=== PATIENT | female | born 1995 | race Caucasian/White ===

== ENCOUNTER 2022-09-01 20:04 | Emergency (ER) | payer MEDICAID, SELFPAY ==
[2022-09-01 20:26] VITALS: BP 116/87; PULSE 110; RESP 20; TEMP 37.2; O2SAT 100; BMI 39.8
[2022-09-01 23:17] VITALS: BP 123/78; PULSE 73; RESP 16; TEMP 37.2; O2SAT 100
[2022-09-02] MEDS: Acetaminophen 325 MG TABLET 650 MG PO (00:15)
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
--- NOTE | 2022-09-02 00:52 | PC.NURSE ---
Discharge instructions provided to pt. Pt verbalizes understanding.
== END 2022-09-02 00:53 | disposition home or self-care (01) ==
PROVIDERS: Emergency Provider Internal Medicine
DX: S01.81XA Laceration without foreign body of other part of head, initial encounter (principal); S01.01XA Laceration without foreign body of scalp, initial encounter; Y00.XXXA Assault by blunt object, initial encounter; Z72.89 Other problems related to lifestyle; Z63.0 Problems in relationship with spouse or partner; Y93.9 Activity, unspecified; Y92.009 Unspecified place in unspecified non-institutional (private) residence as the place of occurrence of the external cause; Y99.9 Unspecified external cause status
CPT/HCPCS: 99283